=== PATIENT | male | born 1980 | race Caucasian/White ===

== ENCOUNTER 2017-06-23 22:31 | Emergency (ER) | payer OTHER ==
[2017-06-23 23:30] LABS: ABSOLUTE BASOPHILS # (AUTO) 0.1 10^3/uL (0.0-0.2); ABSOLUTE EOSINOPHILS # (AUTO) 0.1 10^3/uL (0.0-0.6); ABSOLUTE LYMPHOCYTES (AUTO) 2.1 10^3/uL (0.5-4.7); ABSOLUTE MONOCYTES (AUTO) 0.6 10^3/uL (0.1-1.4); ABSOLUTE NEUT (AUTO) 2.9 10^3/uL (1.7-8.2); BASOPHILS % (AUTO) 1.4 % (0-2); EOSINOPHILS % (AUTO) 1.6 % (0-6); HEMATOCRIT 46.9 % (37.9-51.0); HEMOGLOBIN 16.7 g/dL (13.5-17.0); HGB HCT DIFFERENCE 3.2; LYMPHOCYTES % (AUTO) 36.9 % (13-45); MEAN CORPUSCULAR HEMOGLOBIN 34.9 pg (27.0-33.4); MEAN CORPUSCULAR HGB CONC 35.6 g/dL (32.0-36.0); MEAN CORPUSCULAR VOLUME 98 fl (80-97); MONOCYTES % (AUTO) 10.1 % (3-13); RED BLOOD COUNT 4.78 10^6/uL (4.35-5.55); RED CELL DISTRIBUTION WIDTH 13.1 % (11.5-14.0); WHITE BLOOD COUNT 5.7 10^3/uL (4.0-10.5)
[2017-06-23 23:43] LABS: APPEARANCE,URINE CLEAR; BILIRUBIN,URINE NEGATIVE (NEGATIVE); GLUCOSE, URINE NEGATIVE (NEGATIVE); KETONES,URINE NEGATIVE (NEGATIVE); LEUKOCYTE ESTERASE,URINE NEGATIVE (NEGATIVE); NITRITE,URINE NEGATIVE (NEGATIVE); PROTEIN,URINE NEGATIVE (NEGATIVE); PROTHROMBIN TIME 13.1 SEC (11.4-15.4); URINE SPECIFIC GRAVITY 1.002; UROBILINOGEN,URINE NEGATIVE mg/dL (<2.0)
[2017-06-23 23:44] LABS: ALANINE AMINOTRANSFERASE 85 U/L (21-72); ALBUMIN 4.7 g/dL (3.5-5.0); ALKALINE PHOSPHATASE 100 U/L (38-126); ANION GAP 16 (5-19); ASPARTATE AMINO TRANSFERASE 102 U/L (17-59); BILIRUBIN,DIRECT 0.3 mg/dL (0.0-0.4); BILIRUBIN,TOTAL 0.8 mg/dL (0.2-1.3); BLOOD UREA NITROGEN 5 mg/dL (7-20); CALCIUM 9.3 mg/dL (8.4-10.2); CARBON DIOXIDE 26 mmol/L (22-30); CHLORIDE 105 mmol/L (98-107); CREATININE RESULT 0.88 mg/dL (0.52-1.25); GLUCOSE 102 mg/dL (75-110); PARTIAL THROMBOPLASTIN TIME 28.3 SEC (23.5-35.8); POTASSIUM 4.3 mmol/L (3.6-5.0); SODIUM 146.7 mmol/L (137-145); TOTAL PROTEIN 8.4 g/dL (6.3-8.2)
[2017-06-23] MEDS ORDERED: WARFARIN SODIUM 5 MG TABLET PO ONE (23:51)
[2017-06-23] MEDS ORDERED: DIVALPROEX SODIUM 250 MG TAB.SR.24H PO ONE (23:52)
--- NOTE | 2017-06-23 23:52 | ER Document Report ---
ED General - General Chief Complaint: Suicidal Ideation Stated Complaint: SUICIDAL IDEATION Time Seen by Provider: 06/23/17 22:48 Cannot obtain history due to: Intoxicated Notes: Patient is a 37-year-old male with a past medical history of PTSD, traumatic brain injury, seizures, Antithrombin III deficiency who presents by EMS for concerns of suicidal ideation. The patient is a very poor historian and is also quite intoxicated limiting history taking. Apparently he was found by an off[place]duty [place] police standing on up here looking like he was going to jump into the water. He did admit to this individual that he was suicidal and thinking about killing himself. Patient has a history of prior suicide attempt by his report. He denies any active suicidal ideation at this time. Does admit to heavy alcohol use tonight. He denies any acute medical complaint. - Related Data Allergies/Adverse Reactions: No Known Allergies Allergy (Unverified 06/23/17 22:43) Home Medications: Current Home Medications Alprazolam [Xanax Xr] 2 mg PO TID 06/23/17 [History] Divalproex Sodium [Depakote ER 500 mg Tab.sr] 2,500 mg PO DAILY 06/23/17 [ History] Quetiapine Fumarate [Seroquel 25 mg Tablet] 25 mg PO QHS 06/23/17 [History] Warfarin Sodium [Coumadin 2.5 mg Tablet] 2.5 mg PO ASDIR PRN 06/23/17 [History] Warfarin Sodium [Coumadin 5 mg Tablet] 5 mg PO ASDIR PRN 06/23/17 [History] Past Medical History - General Information source: Patient - Social History Smoking Status: Never Smoker Chew tobacco use (# tins/day): Yes Frequency of alcohol use: 2-3beers daily Drug Abuse: None Lives with: Spouse/Significant other Family History: Reviewed & Not Pertinent GI Medical History: Reports: Hx Gastroesophageal Reflux Disease Psychiatric Medical History: Reports: Hx Depression Past Surgical History: Reports: Hx Abdominal Surgery Review of Systems - Review of Systems Notes: Constitutional: Negative for fever. HENT: Negative for sore throat. Eyes: Negative for visual changes. Cardiovascular: Negative for chest pain. Respiratory: Negative for shortness of breath. Gastrointestinal: Negative for abdominal pain, vomiting or diarrhea. Genitourinary: Negative for dysuria. Musculoskeletal: Negative for back pain. Skin: Negative for rash. Neurological: Negative for headaches, weakness or numbness. 10 point ROS negative except as marked above and in HPI. Physical Exam - Vital signs Vitals: Temp Pulse Resp BP Pulse Ox 97.8 F 77 18 136/86 H 97 06/23/17 22:45 06/23/17 22:45 06/23/17 22:45 06/23/17 22:45 06/23/17 22:45 Interpretation: Normal Notes: PHYSICAL EXAMINATION: GENERAL: Intoxicated but in no acute distress HEAD: Atraumatic, normocephalic. EYES: Pupils equal round and reactive to light, extraocular movements intact, sclera anicteric, conjunctiva are normal. ENT: nares patent, oropharynx clear without exudates. Moist mucous membranes. NECK: Normal range of motion, supple without lymphadenopathy LUNGS: Breath sounds clear to auscultation bilaterally and equal. No wheezes rales or rhonchi. HEART: Regular rate and rhythm without murmurs ABDOMEN: Soft, nontender, normoactive bowel sounds. No guarding, no rebound. No masses appreciated. EXTREMITIES: Normal range of motion, no pitting or edema. No cyanosis. NEUROLOGICAL: No focal neurological deficits. Moves all extremities spontaneously and on command. PSYCH: Intoxicated, blunted mood and affect SKIN: Warm, Dry, normal turgor, no rashes or lesions noted. Course - Re-evaluation Re-evalutation: 06/23/17 23:50 Patient presents intoxicated, no longer with SI [place]. He is heavily intoxicated which procludes an appropriate history but does deny any ongoing SI. Does report a history of similar presentations in the past and has been diagnosed with PTSD and traumatic brain injury. Reports that he does take Coumadin at night 5 mg for Antithrombin III deficiency as well as Depakote 250 mg nightly for seizures. He also takes Seroquel at night for sleep. I will defer the Seroquel as patient is intoxicated at this time and difficult to arouse on initial evaluation. Will provide both his Depakote and Coumadin. Given he actively denies suicidal ideation at this time will not place IVC at this time. Will have him speak to psychiatry in the morning when he is sober. 06/24/17 03:28 Medical screening laboratories do demonstrate a highly elevated alcohol level at 325 and patient did seem impressively sober for this elevated level suggesting a chronic abusive pattern. Patient is remains without complaint at this time, sleeping soundly but wakes easily. He is medically cleared for evaluation by psychiatry. - Vital Signs Vital signs: Temp Pulse Resp BP Pulse Ox 97.8 F 77 18 136/86 H 97 06/23/17 22:45 06/23/17 22:45 06/23/17 22:45 06/23/17 22:45 06/23/17 22:45 - Laboratory Result Diagrams: 06/23/17 23:13 06/23/17 23:13 Laboratory results interpreted by me: 06/23/17 06/23/17 23:13 23:13 MCV 98 H MCH 34.9 H Sodium 146.7 H BUN 5 L AST 102 H ALT 85 H Total Protein 8.4 H Salicylates < 1.0 L Acetaminophen < 10 L Serum Alcohol 345 H* - EKG Interpretation by Me Additional EKG results interpreted by me: 06/24/17 03:29 Normal sinus rhythm. Rate 75. No ST elevations or depressions. QTC is 434. Discharge - Discharge Clinical Impression: Suicidal ideation Alcoholic intoxication Qualifiers: Complication of substance-induced condition: uncomplicated Qualified Code(s): F10.920 - Alcohol use, unspecified with intoxication, uncomplicated Condition: Stable Disposition: PSYCH HOSP/UNIT
[2017-06-23 23:55] LABS: ALCOHOL 345 mg/dL (NONE DETECTED)
[2017-06-23 23:58] LABS: URINE BARBITURATES SCREEN NEGATIVE; URINE METHADONE SCREEN NEGATIVE; URINE OPIATES LOW NEGATIVE; URINE PHENCYCLIDINE SCREEN NEGATIVE
[2017-06-24] MEDS ORDERED: WARFARIN SODIUM 2.5 MG TABLET PO ONE (11:09)
--- NOTE | 2017-06-24 11:24 | ER Document Report ---
Doctor's Note Notes: 06/24/17 11:24 Medical rounds: Chart reviewed and patient interviewed briefly. Vital signs are satisfactory. Laboratory values are remarkable for a sub-therapeutic PT/ INR. He did get a dose of warfarin 5mg last PM, says he"s been compliant with outpatient regimen. On exam, patient is in no distress, alert and oriented. Complains that he feels "like crap," nothing specific. He is medically stable. Psychosocial evaluation is pending. I have ordered an additional dose of warfarin 2.5mg, and a repeat PT/INR daily.
--- NOTE | 2017-06-24 12:16 | EKG REPORT ---
SEVERITY:- NORMAL ECG - SINUS RHYTHM : Confirmed by: Heather Morfni MD 24-Jun-2017 12:15:46
--- NOTE | 2017-06-24 13:54 | ER Document Report ---
ED Psych Disorder / Suicide - General Information source: Patient, Parent TRAVEL OUTSIDE OF THE [place] IN LAST 30 DAYS: No <MICHELLE ROBLERO - Last Filed: 06/24/17 13:42> <JOSE GURROLA - Last Filed: 06/24/17 14:57> - General Chief Complaint: Suicidal Ideation Stated Complaint: SUICIDAL IDEATION Time Seen by Provider: 06/23/17 22:48 - HPI Notes: Patient is a 37-year-old male with a past medical history of PTSD, traumatic brain injury, seizures, Antithrombin III deficiency who presents by EMS for concerns of suicidal ideation. The patient is a very poor historian and is also quite intoxicated limiting history taking. Apparently he was found by an off-duty public safety police standing on up here looking like he was going to jump into the water. He did admit to this individual that he was suicidal and thinking about killing himself. Patient disclosed that he was drinking yesterday. He continued disclosed that he does drink every day. Patient states that he was thinking about jumping off the peer. He states "nothing is going right." Patient denies current suicidal ideation. Patient does have outpatient provider through [facility] and sees Dr. Jordan, Mr. Mcintyre, and Elvira Ferguson. Patient states he is diagnosed with PTSD TBI and depression. When asked what medications patient has he states Xanax. Patient states that the only medication he receives however once reminded others he was able to identify Depakote and Seroquel. Patient's father disclosed the patient is here visiting him. Patient is flying home June 29. Patient is and lives with his spouse in [place]. Patient drinks however yesterday was more than normal patient's father states he would like to be part of discharge plan. Patient is alert and orientated to person, place, time and circumstance. Mood is euthymic with congruent affect. Patient does smile with clinician. Patient denies current suicidal ideation however admits to past suicidal ideation that comes and goes. At homicidal ideation. No delusions are noted. Patient denies auditory and visual hallucinations; patient is not demonstrating any behavior congruent with responding to internal stimuli. Thought processes organized and linear. Eye contact was fair. Intellectual abilities appear to be within average range. Attention and concentration were good. Insight, judgment, impulse control appear to be historically poor due to alcohol abuse Traumatic brain injury 309.81 (F43.10) posttraumatic stress disorder per history provided by patient 311 (F32.9) unspecified depressive disorder per history provided by patient 291.9 (F10.99) unspecified alcohol related disorder Impression\\plan: Patient is considered psychiatrically clear for discharge. Patient does not meet IVC criteria per [place] GS 122C. Patient denies current suicidal ideation. patient does have outpatient provider through [facility] [place]. Patient is here on vacation visiting his father until first week of June. Patient confirms he has enough of his medications. Clinician provided substance abuse psychoeducation. Patient highly encouraged to achieve sobriety. Patient's father agrees to be part of discharge plan to ensure patient has no access to weapons or medications and follows up with outpatient services when he returns home. [facility]. Salcedo was consulted and the care management of this patient; attending physician is in agreement with recommendations and disposition (MICHELLE ROBLERO) - Related Data Allergies/Adverse Reactions: No Known Allergies Allergy (Unverified 06/23/17 22:43) Home Medications: Current Home Medications Alprazolam [Xanax Xr] 2 mg PO TID 06/23/17 [History] Quetiapine Fumarate [Seroquel 25 mg Tablet] 25 mg PO QHS 06/23/17 [History] Divalproex Sodium [Divalproex Sodium ER] 1,500 mg PO QHS 06/24/17 [History] Divalproex Sodium [Divalproex Sodium ER] 500 mg PO QAM 06/24/17 [History] Warfarin Sodium [Coumadin 2.5 mg Tablet] 2.5 mg PO TUTHSA 06/24/17 [History] Warfarin Sodium [Coumadin 2.5 mg Tablet] 5 mg PO MOWEFR 06/24/17 [History] Past Medical History - General Information source: Patient - Social History Smoking Status: Never Smoker Chew tobacco use (# tins/day): Yes Frequency of alcohol use: 2-3beers daily Drug Abuse: None Lives with: Spouse/Significant other Family History: Reviewed & Not Pertinent GI Medical History: Reports: Hx Gastroesophageal Reflux Disease Psychiatric Medical History: Reports: Hx Depression Past Surgical History: Reports: Hx Abdominal Surgery <MICHELLE ROBLERO - Last Filed: 06/24/17 13:42> Course - Laboratory Result Diagrams: 06/23/17 23:13 06/23/17 23:13 <ROBLEROMICHELLE - Last Filed: 06/24/17 13:42> - Laboratory Result Diagrams: 06/23/17 23:13 06/23/17 23:13 <JOSE GURROLA - Last Filed: 06/24/17 14:57> - Vital Signs Vital signs: Temp Pulse Resp BP Pulse Ox 98.1 F 80 18 141/80 H 99 06/24/17 06:22 06/24/17 06:22 06/24/17 06:22 06/24/17 06:22 06/24/17 06:22 - Laboratory Laboratory results interpreted by me: 06/23/17 06/23/17 23:13 23:13 MCV 98 H MCH 34.9 H Sodium 146.7 H BUN 5 L AST 102 H ALT 85 H Total Protein 8.4 H Salicylates < 1.0 L Acetaminophen < 10 L Serum Alcohol 345 H* Discharge <MICHELLE ROBLERO - Last Filed: 06/24/17 13:42> <JOSE GURROLA - Last Filed: 06/24/17 14:57> - Discharge Clinical Impression: Suicidal ideation, Hx of traumatic brain injury, PTSD (post-traumatic stress disorder) Alcohol intoxication Qualifiers: Complication of substance-induced condition: uncomplicated Qualified Code(s): F10.920 - Alcohol use, unspecified with intoxication, uncomplicated Condition: Stable Disposition: HOME, SELF-CARE Additional Instructions: ACUTE ALCOHOL INTOXICATION and ALCOHOL ABUSE: Your evaluation revealed very high levels of alcohol. You can from drinking a large amount of alcohol rapidly! Further, there's the risk of falls , traffic accidents, and fights. A high portion (about 50 percent) of the serious injuries seen in hospital emergency rooms are caused by alcohol. Alcohol overdosage is usually due to an underlying emotional or psychiatric problem. You may benefit from counselling. If "binge" drinking is an ongoing problem for you, or if you drink ANY AMOUNT of alcohol EVERY day, you most likely have a tendency to alcoholism. You should avoid alcohol totally. We can refer you for treatment. Persons with alcohol problems are often also prone to other addictions -- you should discuss any use of medications or drugs with the doctor. You should be watched at home for the next several hours by someone who has not been drinking. Get extra fluids for the next 24 hours. Call the doctor if there is repeated vomiting, increasing headache, decreasing level of alertness, or any other worsening. CHRONIC ALCOHOLISM and ALCOHOL ABUSE: Your evaluation reveals evidence of chronic alcoholism, an addiction to alcohol. The tendency to alcoholism may be inherited. Chronic use of alcohol weakens muscles, causes fatty deposits in the liver , damages the stomach, makes you more prone to infections, and can cause defects in unborn children. In the long run, brain atrophy and cirrhosis of the liver result. You are also at greater risk for certain types of cancer, such as cancer of the mouth, throat, stomach, and liver. Counselling services are available to help you. In-hospital treatment programs often help. Support groups such as Alcoholics Anonymous can be very useful in beating this addiction. Your physician can make a referral for you. As alcoholics often are prone to other addictions, you should discuss your use of any other medications with the doctor. ALCOHOL WITHDRAWAL: Your symptoms are caused by alcohol withdrawal. After a period of frequent drinking, the brain and body are changed by the alcohol. When you quit or reduce your drinking, the nervous system becomes unstable. Withdrawal symptoms can start a few hours after your last drink, but sometimes don't begin until a couple of days later. Symptoms can include shakiness, sweating, insomnia, nausea , vomiting, fearfulness, hallucinations, and seizures. In addition to the acute effects of alcohol withdrawal, we often have to deal with the medical effects of alcoholism. These problems often include dehydration, stomach irritation, intestinal bleeding, low blood sugar, liver disease, and pancreas inflammation. Treatment for alcohol withdrawal includes mild sedatives, vitamins, and fluids. You need to be with someone who can help if symptoms become severe. Many patients can withdraw at home. Admission to the hospital or a detox facility may be necessary if withdrawal symptoms are severe and uncontrollable. Abstaining from alcohol is the only effective long-term treatment. If you start drinking again, you will not be able to control yourself after the first drink. Treatment programs are available. In addition, many alcoholics benefit from Alcoholics Anonymous or other support groups available through your counselor or baptism tare worker. [facility] and A[employer]TE[facility] are support groups for friends and family members of an alcoholic. Go to the emergency room if you develop persistent vomiting, severe abdominal pain, fever, shortness of breath, hallucinations, uncontrollable tremors, or seizures. DEPRESSION: Your evaluation reveals that you have mental depression. While symptoms may be vague, they often include disturbance of sleep, fatigue, loss of appetite , and general loss of interest in life. While depression may be a side effect of drugs, or a reaction to a major change in your life, many cases have no known cause. If depression is acute, and related to a major loss in your life, you can expect it to clear completely with time. If you have been depressed a long time , are prone to repeated bouts of depression or low mood, or have been thinking of suicide, get help. Depression can be treated with anti-depressant medication and counselling. Long-term depression will often take a few weeks to clear, even with appropriate medication. Follow-up care is important. SUICIDAL IDEATION: Suicidal ideation is a common medical term for thoughts about suicide, which may be as detailed as a formulated plan, without the suicidal act itself. Although most people who undergo suicidal ideation do not commit suicide, some go on to make suicide attempts. The range of suicidal ideation varies greatly from fleeting to detailed planning, role playing, and unsuccessful attempts. While thoughts about suicide are common, most people do not carry out serious actions to commit suicide. Based upon your evaluation and discussion with you, we do not believe you are currently at risk to act upon your thoughts of suicide. You have agreed to return to the Emergency Department, at any time , if you feel inclined to act upon your suicidal thoughts. FOLLOW-UP CARE: Please follow-up with your outpatient mental health provider, [facility] in [place] , upon return home from vacation. If you experience worsening or a significant change in your symptoms, notify the physician immediately or return to the Emergency Department at any time for re-evaluation.
[2017-06-24 15:25] VITALS: BP 126/57
== END 2017-06-24 15:25 | disposition home or self-care (01) ==
LOC: ER 22:31
DX: R45.851 Suicidal ideations (principal); F10.920 Alcohol use, unspecified with intoxication, uncomplicated; F43.10 Post-traumatic stress disorder, unspecified; F32.9 Major depressive disorder, single episode, unspecified; F17.220 Nicotine dependence, chewing tobacco, uncomplicated
CPT/HCPCS: 93005; 99285; 36415; 80307 ×4; 85025; 85610; 85730; 80053; 81001; 93010; J3490 ×2